=== PATIENT | female | born 1995 | race Caucasian/White ===

== ENCOUNTER 2020-07-25 14:56 | Observation (INO) | payer OTHER, SELFPAY ==
[2020-07-25] VITALS (7 sets, daily range): BP systolic 119–139; BP diastolic 74–90; PULSE 86–109; RESP 16–20; TEMP 36.6–37.3; O2SAT 91–97; BMI 37.2; BMI 37.4
--- NOTE | 2020-07-25 15:15 | EKG12_ITS ---
Test Reason : SOB Blood Pressure : / mmHG Vent. Rate : 102 BPM Atrial Rate : 102 BPM P-R Int : 170 ms QRS Dur : 108 ms QT Int : 346 ms P-R-T Axes : -02 -04 010 degrees QTc Int : 450 ms Sinus tachycardia Otherwise normal ECG Confirmed by АНДРЕЙ CHILDS, SOBEIDA ([id number]), deputy editor in chief LETY CAMPA ([id number]) on 07/27/2020 12:26:37 PM Referred By: JANNA Confirmed By:SOBEIDA CHIANG MD
--- NOTE | 2020-07-25 15:19 | EX.ED.DYSGE1 ---
HPI History of Present Illness Chief Complaint: Shortness of Breath Narrative Narrative: The patient is about 10 weeks seen today by her AFTER SCHOOL COUNSELOR team sent into the emergency department related to constant progressive cough she has had for weeks. She indicates she has acid reflux and she feels as if there is an acid sensation the back of her throat constantly making her cough she generally has a dry cough occasionally productive of some thin mucus. She is had no coronavirus exposures no history of pneumonia [place] PE DVT no cardiopulmonary history is uncomplicated she is G1, P0 bowel bladder habits unremarkable seen today in the AFTER SCHOOL COUNSELOR's office she is been using H2 inhibitors despite that still has a sense of harsh persistent coughing PFSH PFSH Home Medications prenat.vits,roney,[id number] [ Vitamin] 1 tab PO DAILY 07/25/20 [History Last Taken 07/25/20] Allergy/AdvReac Type Severity Reaction Status Date / Time No Known Allergies Allergy Verified 07/25/20 14:57 Surgical History (Updated 07/25/20 @ 15:11 by Adwoa Daly) History of tonsillectomy [place] teeth removed Social History Smoking Status: Never smoker ROS ROS ED ROS Narrative Cough and shortness of breath Constitutional Constitutional ED: Reports subjective, sweats and other; Denies chills, fever(s) or weight loss Eyes Eyes: Denies blurry vision or change in vision ENT ENT ED: Denies ear pain Cardiovascular Cardiovascular: Denies chest pain or palpitations Respiratory/Chest Respiratory/Chest: Denies dyspnea Gastrointestinal Gastrointestinal: Denies abdominal pain, nausea or vomiting Genitourinary Genitourinary ED: Denies dysuria or hematuria Musculoskeletal Musculoskeletal: Denies arthralgias or myalgias Integumentary Reports rash; Denies abscess Neurologic Neurologic: Denies weakness Psychiatric Psychiatric: Denies anxiety or depression Endocrine Endocrinology: Denies polydipsia or polyuria Allergic/Immunologic Allergic/Immunologic ED: Denies urticaria EXAM Physical Exam Narrative Exam Narrative: Dry cough otherwise exams unremarkable lungs sound clear her pulse ox is noted to be about 9394% on room air Const Vital Signs: 07/25/20 14:58 07/25/20 15:13 07/25/20 15:22 Temperature 98.3 F Temperature Source Temporal Pulse Rate 109 H 101 H Respiratory Rate 16 16 Respiratory Effort Normal Respiratory Depth Shallow Respiratory Pattern Normal Blood Pressure 139/74 H Blood Pressure Mean 95 Pulse Ox 91 94 Oxygen Delivery Method Room Air Room Air Room Air Positive well developed General Appearance ED: well developed HEENT Reports normocephalic Negative for trauma Eyes EOMs intact bilaterally Neck supple Chest Wall inspection of chest normal Resp normal respiratory effort Cardio regular rate GI non-tender and non-distended Back/Spine Back/Spine Narrative: unremarkable Extremity normal to inspection Neuro oriented x3 and CN's II-XII intact bilaterally Sensorium / Orientation: alert Psych mental status grossly normal Skin no rashes or lesions noted MDM MDM MDM Narrative Medical decision making narrative: The differential would be extensive she indicates she feels this acid taste in the back of her throat she is on a prep medications at this time ED screen evaluation be obtained symptomatic therapy Patient's 1 view chest x-ray to my review shows appears to be bilateral infiltrates, coronavirus screen rapid antigen positive, other screening labs are generally unremarkable D-dimer is elevated, duplex scans were obtained discussed with the patient discussed the hospitalist at this time given all the above they have agreed to admission hospitalist team will see the patient for further management options and appropriate therapy and they will check the results of the duplex scan Admit stable Final impression COVID-19 pneumonia infection, 10 weeks Lab Data Labs: Laboratory Results - last 24 hr 07/25/20 07/25/20 07/25/20 15:30 15:30 15:30 WBC 6.4 RBC 5.01 Hgb 13.4 Hct 40.7 MCV 81.2 MCH 26.7 L MCHC 32.9 RDW Std Deviation 43.7 RDW Coeff of Laura 14.7 H Plt Count 398 MPV 9.2 Immature Gran % (Auto) 0.500 Neut % (Auto) 77.6 H Lymph % (Auto) 17.0 L [place] % (Auto) 4.7 Eos % (Auto) 0.0 Baso % (Auto) 0.2 Absolute Neuts (auto) 5.0 Absolute Lymphs (auto) 1.09 Nucleated RBC % 0 Differential Comment SCANNED D-Dimer Quant (PE/DVT) 0.82 H* Sodium 134 L Potassium 3.9 Chloride 103 Carbon Dioxide 23.0 Anion Gap 8 BUN 7 Creatinine 0.72 Estim Creat Clear Calc 110.84 Est GFR (MDRD) Af Amer 125 Est GFR (MDRD) Non-Af 103 BUN/Creatinine Ratio 9.7 L Glucose 94 Calcium 8.3 L Total Bilirubin 0.50 AST 52 H ALT 44 Alkaline Phosphatase 101 Troponin I < 0.015 Total Protein 7.4 Albumin 2.8 L Globulin 4.6 H Albumin/Globulin Ratio 0.6 L Radiography Diagnostic Testing: Radiology Impression Chest X-Ray 07/25/20 15:54 IMPRESSION: Diffuse patchy opacifications in both lung huerta without effusions. Follow-up recommended to ensure resolution. Differential as described above Electronically Signed: Delta Haines MD at 16:15 EDT , Service support , Discharge Plan Triage Chief Complaint: Shortness of Breath ED Provider: Heena Morrow Dx/Rx/DC Orders Prescriptions: No Action Vitamin Tablet 1 tab PO DAILY RF: 0 Primary Care Provider: Care Physician,No Primary
--- NOTE | 2020-07-25 15:22 | NURSING ---
NO OLD EKGS
[2020-07-25] MEDS: Mag Hydrox/Al Hydrox/Simeth 30 ML UDC PO (15:36)
--- NOTE | 2020-07-25 15:54 | RAD_ITS ---
STUDY: X-RAY CHEST REASON FOR EXAM: Female, 25 years old. cough. Patient is 10 wks TECHNIQUE: PA and lateral views of the chest. COMPARISON: None. FINDINGS: Lungs are expanded with airspace opacifications in both lung huerta without effusions. Findings could be seen with Covid pneumonia, multifocal pneumonitis or drug interaction/toxicity. Normal size heart. Normal mediastinum and ashwin. Normal visualized pulmonary arteries. Normal visualized aortic arch and descending thoracic aorta. Normal visualized thoracic spine. Normal visualized ribs, clavicles, and shoulders. There is no demonstrated abnormality of the visualized soft tissue structures of the upper abdomen. RAD/Chest PA and Lateral IMPRESSION: Diffuse patchy opacifications in both lung huerta without effusions. Follow-up recommended to ensure resolution. Differential as described above Electronically Signed: Delta Haines MD at 16:15 EDT , Service support ,
[2020-07-25] MEDS: Oxymetazoline 0.05% 1 SPRAY SPRAY.BTL 2 SPRAY NASAL (16:04)
[2020-07-25 16:07] LABS: Absolute Lymphocyte Count 1.09 X10^3/uL (0.83-4.51); Basophil# 0.01 X10^3/uL; Basophil% 0.2 % (0-1); Hematocrit 40.7 % (37-47); Hemoglobin 13.4 g/dL (12.0-15.0); Lymphocyte # 1.09 X10^3/ul (0.83-4.51); Mean Corp Hgb Conc 32.9 g/dL (32-36); Mean Corpuscular Hgb 26.7 pg (27.0-32.0); Mean Corpuscular Volume 81.2 fL (81-99); Mean Platelet Vol. 9.2 fl (6.2-12.0); Monocyte% 4.7 % (0-10); NRBC Flagged by Analyzer 0 % (0-5); Neutrophil # 4.98 X10^3/uL (2.7-7.7); Neutrophil % 77.6 % (47-70); POSITIVE COUNT YES; Platelet Count 398 K/mm3 (150-450); RBC Distribution Width CV 14.7 % (11.6-14.6); RBC Distribution Width SD 43.7 fl (35.1-43.9); Red Blood Count 5.01 M/mm3 (4.2-5.4); White Blood Count 6.4 K/mm3 (4.4-11.0)
[2020-07-25 16:11] LABS: Differential Indicated SCAN CRITERIA MET
[2020-07-25 16:12] LABS: D-Dimer Quantitative (DVT/PE) 0.82 FEU/ug/m (0.27-0.49)
[2020-07-25 16:18] LABS: ALB/GLOB Ratio 0.6 RATIO (0.9-2.4); AST(SGOT) 52 U/L (15-37); Alanine Aminotransfer ALT/SGPT 44 U/L (13-56); Albumin, Serum 2.8 g/dL (3.2-5.0); Alkaline Phosphatase 101 U/L (45-117); Anion Gap 8 (5-15); BUN 7 mg/dL (7-18); BUN/Creat Ratio 9.7 RATIO (10-20); Calcium,Total 8.3 mg/dL (8.5-10.1); Chloride 103 mmol/L (98-107); Creatinine, Serum 0.72 mg/dL (0.55-1.02); EST Glomerular Filtration Rate 103 mL/min (>60); Est Glom Filt Rate - Afr Amer 125 mL/min (>60); Estimated Creatinine Clearance 110.84 ml/min; Globulin 4.6 g/dL (2.2-4.2); Glucose 94 mg/dL (74-106); Potassium 3.9 mmol/L (3.5-5.1); Protein, Total 7.4 g/dL (6.4-8.2); Sodium Level 134 mmol/L (136-145)
--- NOTE | 2020-07-25 16:34 | HP.PCM.HOS_ITS ---
HPI - General General Date of Admission: 07/25/20 Date of Service: 07/25/20 Chief Complaint: Dyspnea, cough, worsened reflux. HPI Narrative The patient is a 25 y/o F w/ PMHx: Obesity, 9-10 week status following w/ YUSRA Rodrigues who presents to the [facility] ED on 07/25/20 with history of ongoing persistent harsh coughing despite usage of an H2 inhibitor with increased reflux with evaluation per her LOAN MANAGER on day of presentation with referral eventually to the ED given ongoing issues with worsening reflux, nausea, emesis without any diarrhea or abdominal discomfort actually admitting to recent constipation as well as dyspnea, generalized pleuritic chest discomfort worse with coughing ongoing x3 days. She notes that her spouse has been well and not ill. She notes not having been Covid vaccinated but had been asking her OB actually at her current visit when she might be able to receive it. Work-up in the ED included T 98.3, heart rate initially 109, BP 139/74, respiratory rate 16, initially 91% on room air with improvement to 94% on room air however this is nonambulatory, CBC with WBC 6.4, hemoglobin 13.4, platelet 398 without any marked shift, D-dimer 0.82, CMP with sodium 134, total bilirubin 0.5, AST/LT 52/44, alk phos 101, troponin less than 0.015, BNP pending upon requested evaluation of patient, chest x-ray with diffuse patchy opacifications in bilateral lung huerta, rapid SARS positive. Discussed case with ED physician and duplex ultrasound given elevated dimer plan to be obtained in the ED. Discussed case upon admission with infectious disease and agreed with administration of both Decadron and remdesivir. 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 [facility] Medical History (Updated 07/25/20 @ 17:[address] Mary Kate Muñoz MD) Obesity (BMI 30-39.9) Home Medications prenat.vits,roney,[id number] [ Vitamin] 1 tab PO DAILY 07/25/20 [History Last Taken 07/25/20] Allergy/AdvReac Type Severity Reaction Status Date / Time No Known Allergies Allergy Verified 07/25/20 14:57 Family History (Updated 07/25/20 @ 17:[address] Mary Kate Muñoz MD) Father Hypertension other (Patient denies marked maternal family history including HD, DM, CA. Mother takes no medications.) Surgical History (Updated 07/25/20 @ 15:11 by Adwoa Daly) History of tonsillectomy [place] teeth removed Social History (Updated 07/25/20 @ 17:[address] Mary Kate Muñoz MD) household members: spouse Smoking Status: Never smoker alcohol intake: former details: Quit during current , prior only occasional EtOH intake. substance use type: does not use ROS ROS Narrative Admission Review of Systems: CONSTITUTIONAL: No weight loss, fever, chills, + weakness or fatigue. HEENT: Eyes: No visual loss, blurred vision, double vision or yellow sclerae. Ears, Nose, Throat: No hearing loss, sneezing, congestion, runny nose or sore throat. SKIN: No rash or itching, lesions, wounds. CARDIOVASCULAR: No chest pain, chest pressure or chest discomfort, palpitations, edema, orthopnea, syncopal events. RESPIRATORY: + shortness of breath, cough without marked sputum, No wheezing, hemoptysis. GASTROINTESTINAL: + anorexia, nausea, vomiting, constipation, No diarrhea, abdominal pain, melena, BRBPR. GENITOURINARY: No dysuria, frequency, urgency or retention. NEUROLOGICAL: No headache, dizziness, syncope, paralysis, ataxia, numbness or tingling in the extremities, focal weakness, change in bowel or bladder control, seizure. MUSCULOSKELETAL: + muscle, back pain, joint pain or stiffness. HEMATOLOGIC: No anemia, bleeding or bruising. LYMPHATICS: No enlarged nodes. No history of splenectomy. PSYCHIATRIC: No history of depression or anxiety. ENDOCRINOLOGIC: No reports of sweating, cold or heat intolerance. No polyuria or polydipsia. ALLERGIES: No history of asthma, hives, eczema or rhinitis. Vital Signs Vital Signs Vital Signs: 07/25/20 14:58 07/25/20 15:13 07/25/20 15:22 Temperature 98.3 F Temperature Source Temporal Pulse Rate 109 H 101 H Respiratory Rate 16 16 Respiratory Effort Normal Respiratory Depth Shallow Respiratory Pattern Normal Blood Pressure 139/74 H Blood Pressure Mean 95 Pulse Ox 91 94 Oxygen Delivery Method Room Air Room Air Room Air Weight Weight: 230 lb 9.656 oz Body Mass Index (BMI) 37.2 Physical Exam Narrative Physical Examination: General: awake, alert, oriented x 3 and cooperative, seated upright in the ED bed in no apparent distress, mildly anxious and fatigued appearing. Skin: normal color, normal turgor, no icterus, no cyanosis. HEENT: AT/NC, EOMI, PERRLA, mildly dry MM, no carotid bruits or JVD noted. Lungs: Diminished breath sounds throughout, moderate effort, coughing elicited with deep inspiratory increased effort, no rales, ronchi or wheezing. Heart: Mildly tachycardic with regular rhythm; no gallop, rub audible. Abdomen: soft, obese, NTTP, ND, distant normal BS, no obvious HSM. Extremities: no cyanosis, clubbing, or edema. Neurological: patient awake, alert, oriented as noted, cognitive function intact; pupils equally reactive to light and accommodation, cranial nerves II- XII grossly normal, moving all 4 extremities, no focal deficits, strength mildly to moderately global decrease given acute presentation. Psychiatric: affect appears fatigued, mildly anxious, no acute evidence of depressive feelings. Lab / Micro Data Result Diagrams: 07/25/20 15:30 07/25/20 15:30 Labs: Laboratory Results - last 24 hr 07/25/20 07/25/20 07/25/20 15:30 15:30 15:30 WBC 6.4 RBC 5.01 Hgb 13.4 Hct 40.7 MCV 81.2 MCH 26.7 L MCHC 32.9 RDW Std Deviation 43.7 RDW Coeff of Laura 14.7 H Plt Count 398 MPV 9.2 Immature Gran % (Auto) 0.500 Neut % (Auto) 77.6 H Lymph % (Auto) 17.0 L [place] % (Auto) 4.7 Eos % (Auto) 0.0 Baso % (Auto) 0.2 Absolute Neuts (auto) 5.0 Absolute Lymphs (auto) 1.09 Nucleated RBC % 0 D-Dimer Quant (PE/DVT) 0.82 H* Sodium 134 L Potassium 3.9 Chloride 103 Carbon Dioxide 23.0 Anion Gap 8 BUN 7 Creatinine 0.72 Estim Creat Clear Calc 110.84 Est GFR (MDRD) Af Amer 125 Est GFR (MDRD) Non-Af 103 BUN/Creatinine Ratio 9.7 L Glucose 94 Calcium 8.3 L Total Bilirubin 0.50 AST 52 H ALT 44 Alkaline Phosphatase 101 Troponin I < 0.015 Total Protein 7.4 Albumin 2.8 L Globulin 4.6 H Albumin/Globulin Ratio 0.6 L Micro: Microbiology 07/25/20 15:30 SARS-CoV-2 Antigen (Rapid) - Final Nasal Secretion SARS-CoV-2 (COVID 19) Radiology Impression Chest X-Ray 07/25/20 15:54 IMPRESSION: Diffuse patchy opacifications in both lung huerta without effusions. Follow-up recommended to ensure resolution. Differential as described above Electronically Signed: Delta Haines MD at 16:15 EDT , Service support , Assessment & Plan Assessment/Plan (1) Pneumonia due to COVID-19 virus: (2) Hypoxia: PLAN: The patient is a 25 y/o F w/ PMHx: Obesity, 9-10 week status following w/ Rodrigues, GERD who presents to the [facility] ED on 07/25/20 with history of ongoing persistent harsh coughing despite usage of an H2 inhibitor with increased reflux with evaluation per her LOAN MANAGER on day of presentation with referral eventually to the ED given ongoing issues with worsening reflux, nausea, emesis without any diarrhea or abdominal discomfort actually admitting to recent constipation as well as dyspnea, generalized pleuritic chest discomfort worse with coughing ongoing x3 days. S 1. Acute Hypoxia, Dyspnea, Cough with Bilateral Pneumonia secondary to Acute Viral Syndrome, COVID-19: Will admit to the COVID unit, will maintain on oxygen with wean as tolerated to room air, PRN albuterol, HOB, IS parameters w/ pending sputum cultures, respiratory viral panel and urine antigens, D-dimer elevated but + status thus will obtain BL LE duplex US to be cautious, procalcitonin, CRP, CPK, Ferritin, LDH, trop and BNP, continue supportive care including q 2 hour turning including prone given no prone bed availability and judicious hydration, closely monitor for worsening status for ARDS and multiorgan failure, will consult Infectious disease, will initiate and continue IV decadron x 10 doses, given presentation will also initiate IV remdesivir but defer to discretion of Infectious disease especially given status however current data supportive of administration with same dose as non- patients. Patient reports O+ blood type. 2. Elevated D-dimer: Patient with elevated dimer as noted per ED, pending bilateral lower extremity duplex ultrasound given positive status with attempted for CTPA, elevated risk for clots in let alone with positive Covid status which was discussed with patient. 3. Elevated LFT: Admission total bilirubin 0.50, AST/LT 52/44, alk phos 101, likely secondary to #1, will trend CMP as noted. 4. , 9 to 10 weeks status: Discussed case and presentation with patient LOAN MANAGER on-call physician who confirmed status, will attempt to maintain every shift heart tones although patient does note difficulties and noted that it required in office transvaginal. We will continue vitamin. 5. Obesity: Weight loss and lifestyle changes encouraged. 6. GERD: We will maintain on famotidine. 7. DVT prophylaxis: SCDs, Lovenox. Visit Charges OBSV E&M: 87114 Initial observation care L3
[2020-07-25 16:38] LABS: Differential Comment SCANNED
[2020-07-25 16:47] LABS: BNP,B-Type NATRIURETIC PEPTIDE < 2.0 pg/mL (0-100)
--- NOTE | 2020-07-25 16:50 | US_ITS ---
STUDY: VENOUS DOPPLER ULTRASOUND - BILATERAL LOWER EXTREMITIES REASON FOR EXAM: Female, 25 years old. Evaluation for thrombosis -- ELEVATED D-DIMER TECHNIQUE: Ultrasound evaluation of the deep vein system to include bowden-scale imaging and compression was performed. Bowden-scale imaging and Doppler sonographic evaluation, including duplex spectral analysis and qualitative color flow sonography, was performed. COMPARISON: None. FINDINGS: RIGHT LEG Common Femoral Vein: Normal compression, spontaneity and augmentation. Normal color Doppler. Common Femoral Vein/Greater Saphenous Junction: Normal compression, spontaneity and augmentation. Normal color Doppler. Deep Femoral Vein: Normal compression, spontaneity and augmentation. Normal color Doppler. Femoral Proximal: Normal compression, spontaneity and augmentation. Normal color Doppler. Femoral Middle: Normal compression, spontaneity and augmentation. Normal color Doppler. Femoral Distal: Normal compression, spontaneity and augmentation. Normal color Doppler. Popliteal Vein: Normal compression, spontaneity and augmentation. Normal color Doppler. Posterior Tibial Vein: Normal compression, spontaneity and augmentation. Normal color Doppler. Peroneal Vein: Normal compression, spontaneity and augmentation. Normal color Doppler. LEFT LEG Common Femoral Vein: Normal compression, spontaneity and augmentation. Normal color Doppler. Common Femoral Vein/Greater Saphenous Junction: Normal compression, spontaneity and augmentation. Normal color Doppler. Deep Femoral Vein: Normal compression, spontaneity and augmentation. Normal color Doppler. Femoral Proximal: Normal compression, spontaneity and augmentation. Normal color Doppler. Femoral Middle: Normal compression, spontaneity and augmentation. Normal color Doppler. Femoral Distal: Normal compression, spontaneity and augmentation. Normal color Doppler. Popliteal Vein: Normal compression, spontaneity and augmentation. Normal color Doppler. Posterior Tibial Vein: Normal compression, spontaneity and augmentation. Normal color Doppler. Peroneal Vein: Normal compression, spontaneity and augmentation. Normal color Doppler. US/Venous Duplex Imag/[place] Extrem IMPRESSION: Normal venous Doppler ultrasound of the bilateral lower extremities. Electronically Signed: Tang Harden MD at 18:23 EDT Tel , Service support ,
--- NOTE | 2020-07-25 17:27 | NURSING ---
MED SURG WHITE OBS COVID PNEUMONIA, HYPOXIA
--- NOTE | 2020-07-25 17:44 | NURSING ---
CV ICU 203
[2020-07-25 17:59] LABS: Ferritin 153 ng/mL (8-252); Magnesium 2.2 mg/dL (1.6-2.6)
--- NOTE | 2020-07-25 20:08 | ED.RN ---
Called to give report and was told that nurse is in with a patient and shewill call back for report
--- NOTE | 2020-07-25 20:33 | ED.RN ---
Report called to ICU nurse
[2020-07-25] MEDS: Enoxaparin 40 MG/0.4 ML Syringe SC (21:28)
[2020-07-25] MEDS: 0.9% Normal Saline 1,000 ML 100 ML IV (21:28)
[2020-07-25] MEDS: dexAMETHasone 10 MG/ML Vial 6 MG IV (21:28)
[2020-07-25] MEDS: Famotidine 20 MG Tablet PO (21:29)
[2020-07-26] VITALS: PULSE 86
[2020-07-26 02:00] VITALS: BP 116/58; PULSE 86; RESP 21; TEMP 37.3; O2SAT 95
[2020-07-26 04:00] VITALS: PULSE 79
[2020-07-26 05:31] LABS: Absolute Lymphocyte Count 1.07 X10^3/uL (0.83-4.51); Absolute Neutrophil Count 2.9 X10^3/uL (2.0-7.7); Basophil# 0.01 X10^3/uL; Basophil% 0.2 % (0-1); Hematocrit 39.1 % (37-47); Hemoglobin 12.4 g/dL (12.0-15.0); Lymphocyte # 1.07 X10^3/ul (0.83-4.51); Lymphocyte % 25.7 % (19-41); Mean Corp Hgb Conc 31.7 g/dL (32-36); Mean Corpuscular Hgb 26.1 pg (27.0-32.0); Mean Corpuscular Volume 82.3 fL (81-99); Mean Platelet Vol. 8.7 fl (6.2-12.0); Monocyte# 0.21 X10^3/uL; NRBC Flagged by Analyzer 0 % (0-5); Neutrophil # 2.86 X10^3/uL (2.7-7.7); Neutrophil % 68.6 % (47-70); POSITIVE MORPHOLOGY YES; Platelet Count 371 K/mm3 (150-450); RBC Distribution Width CV 14.6 % (11.6-14.6); RBC Distribution Width SD 43.9 fl (35.1-43.9); Red Blood Count 4.75 M/mm3 (4.2-5.4); White Blood Count 4.2 K/mm3 (4.4-11.0)
[2020-07-26 05:44] LABS: Differential Indicated SCAN CRITERIA MET
[2020-07-26 05:49] LABS: ALB/GLOB Ratio 0.6 RATIO (0.9-2.4); AST(SGOT) 44 U/L (15-37); Alanine Aminotransfer ALT/SGPT 48 U/L (13-56); Albumin, Serum 2.6 g/dL (3.2-5.0); Alkaline Phosphatase 108 U/L (45-117); Anion Gap 7 (5-15); BUN 7 mg/dL (7-18); BUN/Creat Ratio 11.8 RATIO (10-20); Calcium,Total 8.2 mg/dL (8.5-10.1); Chloride 107 mmol/L (98-107); EST Glomerular Filtration Rate 129 mL/min (>60); Est Glom Filt Rate - Afr Amer 156 mL/min (>60); Estimated Creatinine Clearance 133.01 ml/min; Globulin 4.3 g/dL (2.2-4.2); Glucose 114 mg/dL (74-106); Potassium 4.3 mmol/L (3.5-5.1); Protein, Total 6.9 g/dL (6.4-8.2); Sodium Level 139 mmol/L (136-145)
[2020-07-26 06:03] LABS: Procalcitonin 0.08 ng/mL (0.00-0.09)
--- NOTE | 2020-07-26 07:08 | PN.HOSP_ITS ---
Subjective Subjective Patient admitted with COVID-19 infection. Temperature 99.2 ?F. Pulse ox 95% on room air. Objective Data Objective Data Vital Signs: Vital Signs Temp Pulse Resp BP Pulse Ox 99.2 F H 79 21 H 116/58 L 95 07/26/20 02:00 07/26/20 04:00 07/26/20 02:00 07/26/20 02:00 07/26/20 02:00 Oxygen Flow Rate (L/min) 2 Oxygen Delivery Method Room Air Weight: 232 lb Body Mass Index (BMI) 37.4 Intake & Output: Intake and Output for Last 24 Hours 07/24/20 07/25/20 07/26/20 23:59 23:59 23:59 Intake Total 220 / 220 Balance 220 / 220 Lab / Micro Data Result Diagrams: 07/26/20 05:20 07/26/20 05:20 Labs: Laboratory Results - last 24 hr 07/25/20 07/25/20 07/25/20 15:30 15:30 15:30 WBC 6.4 RBC 5.01 Hgb 13.4 Hct 40.7 MCV 81.2 MCH 26.7 L MCHC 32.9 RDW Std Deviation 43.7 RDW Coeff of Laura 14.7 H Plt Count 398 MPV 9.2 Immature Gran % (Auto) 0.500 Neut % (Auto) 77.6 H Lymph % (Auto) 17.0 L [place] % (Auto) 4.7 Eos % (Auto) 0.0 Baso % (Auto) 0.2 Absolute Neuts (auto) 5.0 Absolute Lymphs (auto) 1.09 Nucleated RBC % 0 Differential Comment SCANNED D-Dimer Quant (PE/DVT) 0.82 H* Sodium 134 L Potassium 3.9 Chloride 103 Carbon Dioxide 23.0 Anion Gap 8 BUN 7 Creatinine 0.72 Estim Creat Clear Calc 110.84 Est GFR (MDRD) Af Amer 125 Est GFR (MDRD) Non-Af 103 BUN/Creatinine Ratio 9.7 L Glucose 94 Calcium 8.3 L Magnesium Ferritin Total Bilirubin 0.50 AST 52 H ALT 44 Alkaline Phosphatase 101 Troponin I < 0.015 C-React Prot Ext Range B-Natriuretic Peptide Total Protein 7.4 Albumin 2.8 L Globulin 4.6 H Albumin/Globulin Ratio 0.6 L Procalcitonin 07/25/20 07/25/20 07/26/20 15:30 15:30 05:20 WBC RBC Hgb Hct MCV MCH MCHC RDW Std Deviation RDW Coeff of Laura Plt Count MPV Immature Gran % (Auto) Neut % (Auto) Lymph % (Auto) [place] % (Auto) Eos % (Auto) Baso % (Auto) Absolute Neuts (auto) Absolute Lymphs (auto) Nucleated RBC % Differential Comment D-Dimer Quant (PE/DVT) Sodium Potassium Chloride Carbon Dioxide Anion Gap BUN Creatinine Estim Creat Clear Calc Est GFR (MDRD) Af Amer Est GFR (MDRD) Non-Af BUN/Creatinine Ratio Glucose Calcium Magnesium 2.2 Ferritin 153 Total Bilirubin AST ALT Alkaline Phosphatase Troponin I C-React Prot Ext Range 80.70 H B-Natriuretic Peptide < 2.0 Total Protein Albumin Globulin Albumin/Globulin Ratio Procalcitonin 0.08 07/26/20 07/26/20 05:20 05:20 WBC 4.2 L RBC 4.75 Hgb 12.4 Hct 39.1 MCV 82.3 MCH 26.1 L MCHC 31.7 L RDW Std Deviation 43.9 RDW Coeff of Laura 14.6 Plt Count 371 MPV 8.7 Immature Gran % (Auto) 0.500 Neut % (Auto) 68.6 Lymph % (Auto) 25.7 [place] % (Auto) 5.0 Eos % (Auto) 0.0 Baso % (Auto) 0.2 Absolute Neuts (auto) 2.9 Absolute Lymphs (auto) 1.07 Nucleated RBC % 0 Differential Comment D-Dimer Quant (PE/DVT) Sodium 139 Potassium 4.3 Chloride 107 Carbon Dioxide 25.0 Anion Gap 7 BUN 7 Creatinine 0.60 Estim Creat Clear Calc 133.01 Est GFR (MDRD) Af Amer 156 Est GFR (MDRD) Non-Af 129 BUN/Creatinine Ratio 11.8 Glucose 114 H Calcium 8.2 L Magnesium Ferritin Total Bilirubin 0.30 AST 44 H ALT 48 Alkaline Phosphatase 108 Troponin I C-React Prot Ext Range B-Natriuretic Peptide Total Protein 6.9 Albumin 2.6 L Globulin 4.3 H Albumin/Globulin Ratio 0.6 L Procalcitonin Micro: Microbiology 07/26/20 01:20 Urine, Clean Catch Legionella Antigen - Final 07/26/20 01:20 Urine, Clean Catch Streptococcus pneumoniae Antigen (M - Final 07/25/20 17:50 Mucosa - Nose Respiratory Panel (PCR) - Final 07/25/20 15:30 Nasal Secretion SARS-CoV-2 Antigen (Rapid) - Final SARS-CoV-2 (COVID 19) Radiography Diagnostic Testing: Radiology Impression Chest X-Ray 07/25/20 15:54 IMPRESSION: Diffuse patchy opacifications in both lung huerta without effusions. Follow-up recommended to ensure resolution. Differential as described above Electronically Signed: Delta Haines MD at 16:15 EDT , Service support , Venous Duplex 07/25/20 16:50 IMPRESSION: Normal venous Doppler ultrasound of the bilateral lower extremities. Electronically Signed: Tang Harden MD at 18:23 EDT Tel , Service support , Assessment & Plan Assessment/Plan (1) Pneumonia due to COVID-19 virus: (2) Hypoxia: PLAN: The patient is a 25 y/o F, 9 to 10-week is admitted in Covid floor for cough, not getting better on outpatient medications, reflux, nausea vomiting when done, shortness of breath and pleuritic chest discomfort worse with coughing for 3 days. Chest x-ray shows diffuse patchy opacification of both lung huerta without effusion. 1. Acute hypoxia/respiratory insufficiency and bilateral Pneumonia secondary to Acute Viral Syndrome, COVID-19: Patient is admitted to Covid cohort floor. On IV remdesivir and Decadron. Mild leukopenia with relative lymphocytopenia. D- dimer, and CRP elevated. Procalcitonin normal. ID is consulted. Urinary antigens are negative. Respiratory panel negative. Venous duplex of bilateral lower extremities reported normal 2. Elevated D-dimer: As mentioned above. 3. Mildly elevated transaminases probably due to viral infection or : Liver chemistry AST 52, ALT 44. Repeat AST almost normal 44. 4. , 9 to 10 weeks status: On-call OB physician was notified. heart monitoring every shift. Continue vitamin. Patient follows with Dr. Rodrigues. 5. Obesity: Weight loss and lifestyle changes encouraged. 6. GERD: on famotidine. 7. DVT prophylaxis: SCDs, Lovenox. Visit Charges Inpatient E&M: 36794 Subs Hosp L2
[2020-07-26 07:14] VITALS: O2SAT 95
[2020-07-26 07:58] VITALS: BP 109/73; PULSE 74; RESP 16; TEMP 36.8; O2SAT 91
[2020-07-26 08:00] VITALS: PULSE 70
[2020-07-26] MEDS: dexAMETHasone 10 MG/ML Vial 6 MG IV (08:05)
[2020-07-26] MEDS: Prenatal Vits Tablet 1 TABLET PO (08:06)
[2020-07-26] MEDS: 0.9% Normal Saline 1,000 ML 100 ML IV (08:06)
[2020-07-26] MEDS: Enoxaparin 40 MG/0.4 ML Syringe SC (08:06)
[2020-07-26] MEDS: Famotidine 20 MG Tablet PO (08:06)
[2020-07-26] MEDS: Magnesium Hydroxide 30 ML UDC PO (09:21)
--- NOTE | 2020-07-26 09:52 | CASEMGMT ---
ANTONINO ARIAS Assessment: TC to pt room for initial transition planning/care coordination assessment. RN JUANA introduced self and role at [facility], pt voices understanding and consents to assessment. Pt is A/O x4 and answers all questions appropriately at this time. Care providers, pharmacy, and demographics verified/updated. Admitting Dx: COVID PNA, hypoxia PCP: No PCP. Provided nurse with pamphlet of local physicians to give to pt. Specialists: , [employer] Preferred Pharmacy: [facility] [place] Insurance: [employer] Prescription Benefit: yes LW/HPOA: Pt denies having a LW/DPOA. LNOK: Dale and Nasima Taylor, parents; Demetrio Luis, Living Arrangements: Pt lives with in a split level house with no steps to enter. Pt is I in ADL's and denies concerns at home. Transportation: Pt drives self and denies concerns with transportation. DME: Pt denies any DME in the home. Pt states no concerns with going home at time of dc. Pt is 9-10 weeks . Pt states no further concerns/needs. CM to follow for O2 needs. Provided pt list of local in network DME companies should pt need O2 at dc. Pt preferred provider is [facility]. Advised pt to ask CM if any further question/concerns/needs arise, voices understanding. Pt Goal: Home Plan: Home
[2020-07-26] MEDS: guaiFENesin/D-Methorphan TAB.SR.12H 1 TABLET PO (10:26)
--- NOTE | 2020-07-26 11:21 | NURSING ---
1110-unable to determine fhr with external doppler at this time.
--- NOTE | 2020-07-26 13:25 | PCM.DC ---
Discharge Instructions Diet Discharge Diet: No restrictions Activity Discharge Activity: Return to Normal Activity and May Not Drive Weight Bearing Status: Partial weight bearing Dressing / Incision Call your doctor if you observe: Fever of 101 or Higher, Coldness, Increased Pain, Numbness or Tingling, Change in Color, Inability to urinate, Inability to have a bowel movement, Shortness of breath, Dizziness, Swelling in the ankles, Chest pain, Prolonged hiccupping, Increased palpitations (irregular heartbeat), Calf discomfort and Uncontrolled pain Follow Up Care Test Results: Test results from this visit will be discussed in further detail at your follow-up appointment, if applicable. Discharge Plan Admission Admit Date/Time: 07/25/20 16:41 Primary Reason for Your Visit: Bilateral Covid pneumonia Attending Provider: Virgilio Brito Primary Care Provider: Care Physician,No Primary Consulting Providers: Eddie Chairez Instructions Patient Instructions: Coronavirus Disease 2019 COVID-19 and Childbirth Discharge Orders/Prescriptions Prescriptions: New sennosides-docusate sodium [Stool Softener-Stimulant Laxat] 8.6-50 mg Tablet 2 tab PO BID PRN PRN (Reason: Constipation) Qty: 0 RF: 0 dexamethasone [Decadron] 6 mg tablet 6 mg PO DAILY Qty: 8 RF: 0 dextromethorphan-guaifenesin [Mucus DM Max ER] 60-1,200 mg tablet extended release 12 hr 1 tab PO Q12H Qty: 14 RF: 0 Continued prenat.vits,roney,kda-vqir-dsldt Tablet 1 tab PO DAILY RF: 0 Referrals / Follow Up: Care Physician,No Primary [Primary Care Provider] - Disposition Disposition (needs filled in before D/C Order can be placed): Home, self care
--- NOTE | 2020-07-26 13:30 | DS.PCM_ITS ---
Providers Date of Admission: 07/25/20 Primary Care Physician: Dionne Primary Care Phys Consultations 07/25/20 20:59 Consult: Infectious Disease Routine Consulting Provider: Eddie Chairez Reason for Consult: COVID PNA, hypoxia, 10 weeks EMERGENT Consult: No MD Notified: Yes Date Notified:: 07/25/20 Time Notified: 16:38 Method of Notification: called. Reason For Visit: COVID PNA, HYPOXIA Diagnosis Discharge Diagnosis (1) Pneumonia due to COVID-19 virus: Status: Acute Code(s): U07.1 - COVID-19; J12.82 - Pneumonia due to coronavirus disease 2019 (2) Hypoxia: Status: Acute Code(s): R09.02 - Hypoxemia Medications at Discharge Home Medications prenat.vits,roney,hti-sodx-nomns 1 tab PO DAILY 07/25/20 dexamethasone [Decadron] 6 mg PO DAILY #8 tab 07/26/20 dextromethorphan-guaifenesin [Mucus DM Max ER] 1 tab PO Q12H #14 tab 07/26/20 enoxaparin 40 mg SUBCUT DAILY 14 Days #5.6 ml 07/26/20 sennosides-docusate sodium [Stool Softener-Stimulant Laxat] 2 tab PO BID PRN PRN #0 tab 07/26/20 Hospital Course Summary of Care Provided Hospital Course: The patient is a 25 y/o F, 9 to 10-week is admitted in Covid floor for cough, not getting better on outpatient medications, reflux, nausea vomiting when done, shortness of breath and pleuritic chest discomfort worse with coughing for 3 days. Chest x-ray shows diffuse patchy opacification of both lung huerta without effusion. 1. Acute hypoxia/respiratory insufficiency and bilateral Pneumonia secondary to Acute Viral Syndrome, COVID-19: Patient is admitted to Covid cohort floor. On IV remdesivir and Decadron. Initial/normal WBC count with relative lymphocytopenia. D-dimer, and CRP elevated. Procalcitonin normal. Repeat labs shows 4.2 thousand WBC count, normal neutrophil and lymphocyte count. Patient wants to go home. ID was consulted but not seen. Urinary antigens are negative. Respiratory panel negative. Venous duplex of bilateral lower extremities reported normal. Patient is discharged on dexamet hasone to complete a total of 10 days, Mucinex D and Lovenox 40 mg subcu daily for total of 2 weeks. 2. Elevated D-dimer: As mentioned above. 3. Mildly elevated transaminases probably due to viral infection or : Liver chemistry AST 52, ALT 44. Repeat AST almost normal 44. 4. , 9 to 10 weeks status: Per abdomen, gravid uterus not palpable probably pelvic about 9 to 10 weeks. On-call OB physician was notified. heart monitoring every shift. Continue vitamin. Patient follows with Dr. Ameena Marin 5. Obesity: Weight loss and lifestyle changes encouraged. 6. GERD: on famotidine. 7. DVT prophylaxis: SCDs, Lovenox. Discharge medication reconciliation done. Discharge follow-up instructions completed. Discharge process discussed with the patient and all questions were answered to patient's satisfaction. Total time spent, exact 35 minutes on discharge meds reconciliation, examination, coordination of care with nurses and ancillary staff, review of imaging and blood test and discussion with the patient on follow-up instructions Physical Exam Narrative Patient was admitted with COVID-19 pneumonia. Temperature 99.2. Last temperature 98.2 ?F. Patient is not short of breath or chest pain. Pulse ox 95% on room air General: Alert, Oriented x3, Cooperative HEENT: Atraumatic, PERRLA, EOMI, Normocephalic Oral: No Gingival or Mucosal Lesions/ Ulcerations Neck: Supple, No JVD, Negative Carotid Bruits Lungs: Air entry diminished in bilateral lung bases. Mild bilateral expiratory wheezing. Cardiovascular: Regular rate, Regular Rhythm, Normal S1, Normal S2, No murmurs Abdomen: Bowel Sounds Present, Soft, Non Tender, Non-Distended : No renal angle tenderness. No suprapubic tenderness. Extremities: No edema, Capillary Refill Less than 3 Seconds Skin: No rashes, No breakdown Musculoskeletal: No Tenderness to Palpation of Joints or Extremities Neurological: Cranial nerves II-XII grossly intact, Deep Tendon Reflexes 2+/4 and Symmetrical, Neuro grossly intact Psych/Mental Status: Normal Affect, Appropriate. ABG / Lab / Microbiology Data Result Diagrams: 07/26/20 05:20 07/26/20 05:20 Laboratory: Laboratory Results - last 24 hr 07/25/20 07/25/20 07/25/20 15:30 15:30 15:30 WBC 6.4 RBC 5.01 Hgb 13.4 Hct 40.7 MCV 81.2 MCH 26.7 L MCHC 32.9 RDW Std Deviation 43.7 RDW Coeff of Laura 14.7 H Plt Count 398 MPV 9.2 Immature Gran % (Auto) 0.500 Neut % (Auto) 77.6 H Lymph % (Auto) 17.0 L [place] % (Auto) 4.7 Eos % (Auto) 0.0 Baso % (Auto) 0.2 Absolute Neuts (auto) 5.0 Absolute Lymphs (auto) 1.09 Nucleated RBC % 0 Differential Comment SCANNED D-Dimer Quant (PE/DVT) 0.82 H* Sodium 134 L Potassium 3.9 Chloride 103 Carbon Dioxide 23.0 Anion Gap 8 BUN 7 Creatinine 0.72 Estim Creat Clear Calc 110.84 Est GFR (MDRD) Af Amer 125 Est GFR (MDRD) Non-Af 103 BUN/Creatinine Ratio 9.7 L Glucose 94 Calcium 8.3 L Magnesium Ferritin Total Bilirubin 0.50 AST 52 H ALT 44 Alkaline Phosphatase 101 Troponin I < 0.015 C-React Prot Ext Range B-Natriuretic Peptide Total Protein 7.4 Albumin 2.8 L Globulin 4.6 H Albumin/Globulin Ratio 0.6 L Procalcitonin 07/25/20 07/25/20 07/26/20 15:30 15:30 05:20 WBC RBC Hgb Hct MCV MCH MCHC RDW Std Deviation RDW Coeff of Laura Plt Count MPV Immature Gran % (Auto) Neut % (Auto) Lymph % (Auto) [place] % (Auto) Eos % (Auto) Baso % (Auto) Absolute Neuts (auto) Absolute Lymphs (auto) Nucleated RBC % Differential Comment D-Dimer Quant (PE/DVT) Sodium Potassium Chloride Carbon Dioxide Anion Gap BUN Creatinine Estim Creat Clear Calc Est GFR (MDRD) Af Amer Est GFR (MDRD) Non-Af BUN/Creatinine Ratio Glucose Calcium Magnesium 2.2 Ferritin 153 Total Bilirubin AST ALT Alkaline Phosphatase Troponin I C-React Prot Ext Range 80.70 H B-Natriuretic Peptide < 2.0 Total Protein Albumin Globulin Albumin/Globulin Ratio Procalcitonin 0.08 07/26/20 07/26/20 05:20 05:20 WBC 4.2 L RBC 4.75 Hgb 12.4 Hct 39.1 MCV 82.3 MCH 26.1 L MCHC 31.7 L RDW Std Deviation 43.9 RDW Coeff of Laura 14.6 Plt Count 371 MPV 8.7 Immature Gran % (Auto) 0.500 Neut % (Auto) 68.6 Lymph % (Auto) 25.7 [place] % (Auto) 5.0 Eos % (Auto) 0.0 Baso % (Auto) 0.2 Absolute Neuts (auto) 2.9 Absolute Lymphs (auto) 1.07 Nucleated RBC % 0 Differential Comment D-Dimer Quant (PE/DVT) Sodium 139 Potassium 4.3 Chloride 107 Carbon Dioxide 25.0 Anion Gap 7 BUN 7 Creatinine 0.60 Estim Creat Clear Calc 133.01 Est GFR (MDRD) Af Amer 156 Est GFR (MDRD) Non-Af 129 BUN/Creatinine Ratio 11.8 Glucose 114 H Calcium 8.2 L Magnesium Ferritin Total Bilirubin 0.30 AST 44 H ALT 48 Alkaline Phosphatase 108 Troponin I C-React Prot Ext Range B-Natriuretic Peptide Total Protein 6.9 Albumin 2.6 L Globulin 4.3 H Albumin/Globulin Ratio 0.6 L Procalcitonin Microbiology: Microbiology 07/26/20 01:20 Legionella Antigen - Final Urine, Clean Catch Streptococcus pneumoniae Antigen (M - Final 07/25/20 17:50 Respiratory Panel (PCR) - Final Mucosa - Nose 07/25/20 15:30 SARS-CoV-2 Antigen (Rapid) - Final Nasal Secretion SARS-CoV-2 (COVID 19) Microbiology 07/26/20 01:20 Urine, Clean Catch Legionella Antigen - Final 07/26/20 01:20 Urine, Clean Catch Streptococcus pneumoniae Antigen (M - Final 07/25/20 17:50 Mucosa - Nose Respiratory Panel (PCR) - Final 07/25/20 15:30 Nasal Secretion SARS-CoV-2 Antigen (Rapid) - Final SARS-CoV-2 (COVID 19) Radiography Diagnostic Testing: Radiology Impression Chest X-Ray 07/25/20 15:54 IMPRESSION: Diffuse patchy opacifications in both lung huerta without effusions. Follow-up recommended to ensure resolution. Differential as described above Electronically Signed: Delta Haines MD at 16:15 EDT , Service support , Venous Duplex 07/25/20 16:50 IMPRESSION: Normal venous Doppler ultrasound of the bilateral lower extremities. Electronically Signed: Tang Harden MD at 18:23 EDT Tel , Service support , D/C Instructions Discharge Diet: No restrictions Discharge Activity: Return to Normal Activity and May Not Drive Weight Bearing Status: Partial weight bearing Call your doctor if you observe: Fever of 101 or Higher, Coldness, Increased Pain, Numbness or Tingling, Change in Color, Inability to urinate, Inability to have a bowel movement, Shortness of breath, Dizziness, Swelling in the ankles, Chest pain, Prolonged hiccupping, Increased palpitations (irregular heartbeat), Calf discomfort and Uncontrolled pain Meaningful Use Info Meaningful Use Diagnoses (Choose all that apply): None applicable Discharge Plan Admission Admit Date/Time: 07/25/20 16:41 Primary Reason for Your Visit: Bilateral Covid pneumonia Attending Provider: Virgilio Brito Primary Care Provider: Care Physician,No Primary Consulting Providers: Eddie Chairez Instructions Patient Instructions: Coronavirus Disease 2019 COVID-19 and Childbirth Discharge Orders/Prescriptions Prescriptions: New sennosides-docusate sodium [Stool Softener-Stimulant Laxat] 8.6-50 mg Tablet 2 tab PO BID PRN PRN (Reason: Constipation) Qty: 0 RF: 0 dexamethasone [Decadron] 6 mg tablet 6 mg PO DAILY Qty: 8 RF: 0 dextromethorphan-guaifenesin [Mucus DM Max ER] 60-1,200 mg tablet extended release 12 hr 1 tab PO Q12H Qty: 14 RF: 0 enoxaparin 40 mg/0.4 mL syringe 40 mg subcut DAILY 14 Days Qty: 5.6 RF: 0 Continued prenat.vits,roney,yie-gsqy-yqome Tablet 1 tab PO DAILY RF: 0 Referrals / Follow Up: Care Physician,No Primary [Primary Care Provider] - Disposition Disposition (needs filled in before D/C Order can be placed): Home, self care Visit Charges OBSV E&M: 16180 Observation care discharge
--- NOTE | 2020-07-27 11:07 | CASEMGMT ---
Addendum entered by Honey Forman 07/27/20 15:23: TC to pt again at this time. Left message on voicemail. TC to Dr. Rodrigues's nurse to see when pt next appt is and to make aware of lovenox situation. Spoke with Sylwia nurse who states pt has a virtual appt next Friday. She also states pt called in yesterday regarding the lovenox and pt picked up a lovenox education box from their office. Original Note: COVID 19 Follow up Telephone Call Pt admitted in observation status 6.1.21-6.2.21 with COVID 19. Pt 9-10 wks . Pt was not sent home on home O2. Pt was prescribed lovenox after the discharge. RN CM calling to follow up. Left message on pt identified voicemail requesting telephone call back to this RN CM.
== END 2020-07-26 11:40 | disposition home or self-care (01) ==
LOC: ED 16:20 → ICU 17:48
PROVIDERS: Admitting Provider Family Medicine; Emergency Provider Emergency Medicine; Visit Provider Internal Medicine
DX: O98.511 Other viral diseases complicating pregnancy, first trimester (principal); O99.511 Diseases of the respiratory system complicating pregnancy, first trimester; U07.1 COVID-19; J12.82 Pneumonia due to coronavirus disease 2019; R09.02 Hypoxemia; O99.611 Diseases of the digestive system complicating pregnancy, first trimester; K21.9 Gastro-esophageal reflux disease without esophagitis; Z3A.10 10 weeks gestation of pregnancy; O99.211 Obesity complicating pregnancy, first trimester; E66.9 Obesity, unspecified
CPT/HCPCS: 71046; 80053; 82728; 83735; 83880; 84145; 84484; 85025; 85379; 86140; 87426; 87449; 87633; 93005; 93970; 96361; 96372; 96374; 96376; 99218; 99251; 99283; J7030; G0378; G0463

== ENCOUNTER 2021-02-07 17:30 | Outpatient (CLI) | payer OTHER, SELFPAY ==
[2021-02-07 17:40] VITALS: BMI 42.3
[2021-02-07 18:00] VITALS: TEMP 36.4
[2021-02-07 18:01] VITALS: BP 149/77; PULSE 88
[2021-02-07 18:10] VITALS: BP 139/74; PULSE 89
--- NOTE | 2021-02-08 08:08 | OB.TRI.HP_ITS ---
HPI - General HPI Narrative JANELL DOTSON, is a 25 F @ 37.2 weeks here for NST due to obesity. PFSH PFSH Medical History (Updated 02/08/21 @ 08:[address] Jolynn Woody MD) Obesity (BMI 30-39.9) Home Medications prenat.vits,roney,oim-hliy-betne 1 tab PO DAILY 07/25/20 [History Last Taken 07/25/20] Allergy/AdvReac Type Severity Reaction Status Date / Time No Known Allergies Allergy Verified 02/07/21 17:45 Family History (Updated 07/25/20 @ 17:[address] Mary Kate Muñoz MD) Father Hypertension Surgical History (Updated 07/25/20 @ 15:11 by Adwoa Daly) History of tonsillectomy [place] teeth removed Social History (Updated 07/25/20 @ 17:[address] Mary Kate Muñoz MD) household members: spouse Smoking Status: Never smoker alcohol intake: former details: Quit during current , prior only occasional EtOH intake. substance use type: does not use NST FHR Rate Baby A Baseline: 130 Variability:: Moderate Accelerations:: 15 x 15 Decelerations:: None NST Reactive:: Yes FHR Category:: Category I Uterine Activity:: irregular Assessment & Plan (1) 37 weeks gestation of : (2) Obesity affecting : QUALIFIERS: Trimester: third trimester Qualified Code(s): O99.213 - Obesity complicating , third trimester PLAN: @ 37.2 weeks- Obesity in here for NST 1) NST reactive Cat 1- well being established 2) dc home
== END 2021-02-07 18:15 | disposition home or self-care (01) ==
LOC: WPOUT 17:39 → WP 17:39
PROVIDERS: Visit Provider Obstetrics & Gynecology
DX: O99.213 Obesity complicating pregnancy, third trimester (principal); E66.9 Obesity, unspecified; Z3A.37 37 weeks gestation of pregnancy
CPT/HCPCS: 59025

== ENCOUNTER 2021-02-19 09:16 | Inpatient (IN) | payer OTHER, SELFPAY ==
--- NOTE | 2021-02-15 10:57 | HP.PCM_ITS ---
History and Physical HPI: The patient is a 25 year old female presenting for pre-operative visit. She is scheduled for , for breech on 02/19. Procedure discussed along with risks, benefits and complications. Other alternatives discussed for management. Consent form signed? Yes. ? ? PAST MEDICAL HISTORY PAST MEDICAL HISTORY Diagnosis Date ? NEGATIVE MEDICAL HISTORY ? ? ? PAST SURGICAL HISTORY PAST SURGICAL HISTORY Procedure Laterality Date ? PAST SURGICAL HISTORY OF ? ? ? wisdom teeth ? TONSILLECTOMY HX ? CURRENT MEDICATIONS Current Outpatient Medications Medication Sig Dispense Refill ? LOW-DOSE ASPIRIN ORAL Take by mouth. ? ? ? psyllium seed, with dextrose, (FIBER ORAL) Take by mouth. gummies ? ? ? docusate sodium (COLACE ORAL) Take by mouth. ? ? ? calcium carbonate (TUMS ORAL) Take by mouth. ? ? ? Aiiigidg-Ct-Haa-Fe-FA ( VITAMIN) tab Take 1 tablet by mouth. ? ? ? No current facility-administered medications for this visit. ? ? ALLERGIES: Patient has no known allergies. ? PERSONAL HISTORY: SOCIAL HISTORY Social History ? Tobacco Use ? Smoking status: Never Smoker ? Smokeless tobacco: Never Used Vaping Use ? Vaping Use: Never used Substance Use Topics ? Alcohol use: Not Currently ? ? Comment: socially ? Drug use: Never ? FAMILY HISTORY: FAMILY HISTORY FAMILY HISTORY Problem Relation Age of Onset ? No Known Problems Mother ? ? No Known Problems Father ? ? No Known Problems Sister ? ? No Known Problems Sister ? ? Alzheimer's Disease Maternal Grandmother ? ? Diabetes Maternal Grandmother ? ? Lymphoma Maternal Grandfather ? ? Seizures Paternal Grandmother ? ? Heart Attack Paternal Grandmother ? ? Skin Cancer Paternal Grandfather ? ? ? REVIEW OF SYMPTOMS: GENERAL: denies fevers or chills ENDOCRINOLOGY: has not been on steroids Cardiology : denies palpitations or chest pain Respiratory: denies SOB or cough Hematology: denies history of prolonged bleeding or easy bruising or VTE Allergy: Denies history of personal or family history of allergy to anesthesia ? PHYSICAL EXAMINATION: ? VITALS: Blood pressure 126/84, weight 266 lb (120.7 kg), last menstrual period 05/22/2020. ? GENERAL: The patient is well nourished, well hydrated in no acute distress. , The patient is oriented to time, place, and person. NECK: Supple. No lynphadenopathy, normal thyroid, no thyromegaly. LUNGS: Clear to auscultation bilaterally. no wheezes, rhonchi or rales HEART: Regular rate and rhythm, Normal heart sounds and No murmurs or gallops GENITALIA: Normal external genitalia, Urethral meatus normal, Bladder nontender, normal vagina and normal vaginal tone, normal cervix, normal uterus, size and consistency, normal adnexa without masses or tenderness and perineum WNL WET PREP: Not indicated ? IMPRESSION: Estimated Date of Delivery: 02/26/21 Ziggy breech ? PLAN: The risks/benefits/alternatives and personal involved for the planned c- section were reviewed with the patient. Her questions were answered to her satisfaction and she desires to proceed. Consent was signed. I reviewed with her postop instructions and expectations. ? ? I have reviewed and updated past medical and surgical history, medications and allergies This H&P was completed in my office on 02/14/21.
[2021-02-19] VITALS (16 sets, daily range): BP systolic 87–132; BP diastolic 54–84; PULSE 59–95; RESP 14–18; TEMP 35.9–36.7; O2SAT 95–100; BMI 42.1
[2021-02-19] MEDS: Lactated Ringers 1,000 ML 999 ML IV (10:00)
[2021-02-19 10:22] LABS: Absolute Lymphocyte Count 1.99 X10^3/uL (0.83-4.51); Basophil# 0.03 X10^3/uL; Basophil% 0.3 % (0-1); Eosinophil# 0.13 X10^3/uL; Eosinophils% 1.2 % (0-5); Hematocrit 33.4 % (37-47); Hemoglobin 10.5 g/dL (12.0-15.0); Lymphocyte # 1.99 X10^3/ul (0.83-4.51); Lymphocyte % 18.3 % (19-41); Mean Corp Hgb Conc 31.4 g/dL (32-36); Mean Corpuscular Hgb 25.2 pg (27.0-32.0); Mean Corpuscular Volume 80.3 fL (81-99); Mean Platelet Vol. 9.1 fl (6.2-12.0); Monocyte# 0.64 X10^3/uL; Monocyte% 5.9 % (0-10); NRBC Flagged by Analyzer 0 % (0-5); Neutrophil # 8.02 X10^3/uL (2.7-7.7); Neutrophil % 73.6 % (47-70); Platelet Count 412 K/mm3 (150-450); RBC Distribution Width CV 15.9 % (11.6-14.6); RBC Distribution Width SD 45.7 fl (35.1-43.9); Red Blood Count 4.16 M/mm3 (4.2-5.4); White Blood Count 10.9 K/mm3 (4.4-11.0)
[2021-02-19] MEDS: Acetaminophen 500 MG Tablet 1000 MG PO ×3 (11:06→23:43)
[2021-02-19] MEDS: Lactated Ringers 1,000 ML 150 ML IV (11:06)
[2021-02-19] MEDS: Sodium Citrate/Citric Acid 30 ML UDC PO (11:53)
--- NOTE | 2021-02-19 12:14 | OP.PCM_ITS ---
Maternal Data Information Final EDUARDO: 02/26/21 Final EDUARDO Source: US <20 weeks Gestational age: 39 Details Operative Information Date of Procedure: 02/19/21 Pre-Operative Diagnosis: breech, 39 weeks Post-Operative Diagnosis: same Classification: Scheduled Procedure Type: low transverse compliance representative #1: Maria C Ojeda Type of Anesthesia: Spinal Anesthesiologist: Viviana Cerda Special Medications: Duramorph Antibiotic Given: Ancef 2 grams IV x1 Drain: Cotton to straight drain Estimated Blood Loss: 800 Fluids Replaced: 1000 cc crystalloid Procedure Start Time: 12:17 Time of Delivery: 12:20 Findings Description of Procedure: The patient was taken to the operating room. She was prepped and draped in the dorsal supine position with a leftward tilt. A Pfannenstiel skin incision was made approximately 2 cm above the symphysis pubis and carried through to underlying layer fascia with the scalpel. The fascia was incised incised in the midline and extended laterally with the Mcconnell scissors. The fascia was dissected off the rectus muscles with blunt and sharp dissection. The rectus muscles were in the midline and the peritoneum was entered bluntly. The peritoneal incision was stretched and the bladder blade was placed. The uterine incision was made in a low transverse fashion with the scalpel and extended superiorly and inferiorly with blunt dissection. The amniotic membranes were ruptured bluntly and clear amniotic fluid returned. The 's buttocks were brought to the incision. The legs were swept out individually. The arms were then swept out individually. A towel was placed around the trunk of the fetus and the head was delivered in a flexed position through the loose nuchal cord x1. The mouth and nares were bulb suctioned. The cord was clamped and cut as the was stimulated. Cord clamping was delayed. The infant was handed off to the waiting nursing staff. The placenta was delivered with fundal massage and gentle traction in the standard fashion. The uterus was exteriorized and cleared of all clots and debris. The cervix was dilated with a ring forcep. The uterine incision was closed with #1 Vicryl in a running locked fashion. A second layer of the same suture was used in an imbricating fashion. 2 [id number] sutures were needed and left side of the uterine incision in a sinus to obtain hemostasis. The incision was examined and was found to be hemostatic. Some Kirill was placed over the incision. The uterus was placed back into the peritoneal cavity and hemostasis was again confirmed. The rectus muscles were examined and any bleeding was Bovie cauterized. The parietal peritoneum and rectus muscles were closed en bloc with an 0 Vicryl running suture. The surgical teams outer gloves were then changed. Some Kirill was placed over the rectus muscles as well as in the subcutaneous tissue. The rectus fascia was examined and any bleeding was Bovie cauterized and the rectus fascia was closed with 0 PDS suture in a running standard fashion. The subcutaneous tissue was examining and any bleeding was Bovie cauterized. The subcutaneous tissue was reapproximated with 3-0 Vicryl suture. The skin was closed in a subcuticular fashion by the ADVERTISING ACCOUNT MANAGER with me present in the labor and delivery suite. I performed the remainder of the procedure with assistance. All sponge, lap, and needle counts were correct. The patient was taken to her room for recovery in a stable condition. Presentation: Positive for Ziggy Breech Amniotic Membrane Rupture Type: Artificial Amniotic Fluid Description: Clear Placental Delivery Description: Expressed Placenta Disposition: [facility] Cord Vessel Description: 3 Vessels Cord Entanglement: Around neck x 1, loose Nuchal Cord Compression: Without compression A Gender: Male (8 lb 11 oz, [place]) (1 minute): 8 (5 minute): 9 Delayed Cord Clamping: Yes Complications Complications: none Admit VTE Documentation VTE Present on Admission: No VTE Mechan Device Prophylaxis: SCD's VTE Pharm Prophylaxis Ordered: Yes
[2021-02-19] MEDS: Oxytocin 30 units/NS 500 ml 30 UNITS/500 ML IV.SOLN 167 UNITS IV (13:20)
[2021-02-19] MEDS: Ketorolac 30 MG/ML Syringe IV ×2 (14:03→20:37)
[2021-02-19] MEDS: 0.9% Saline Lock 10 ML Syringe IV (17:24)
[2021-02-20] VITALS (7 sets, daily range): BP systolic 113–130; BP diastolic 56–73; PULSE 78–94; RESP 16–18; TEMP 36.3; O2SAT 96–98
[2021-02-20] MEDS: Enoxaparin 40 MG/0.4 ML Syringe SC ×2 (00:30→12:23)
[2021-02-20] MEDS: Ketorolac 30 MG/ML Syringe IV ×2 (02:27→08:57)
[2021-02-20] MEDS: Acetaminophen 500 MG Tablet 1000 MG PO ×3 (04:53→18:39)
[2021-02-20 06:32] LABS: Hematocrit 30.5 % (37-47); Hemoglobin 9.6 g/dL (12.0-15.0); Mean Corp Hgb Conc 31.5 g/dL (32-36); Mean Corpuscular Hgb 25.9 pg (27.0-32.0); Mean Corpuscular Volume 82.2 fL (81-99); Mean Platelet Vol. 9.1 fl (6.2-12.0); Platelet Count 365 K/mm3 (150-450); RBC Distribution Width CV 15.9 % (11.6-14.6); RBC Distribution Width SD 47.1 fl (35.1-43.9); Red Blood Count 3.71 M/mm3 (4.2-5.4)
--- NOTE | 2021-02-20 07:30 | PCM.PN.OB ---
Subjective Subjective Pain well controlled, average lochia. No N/V. Able to urinate Objective Data Objective Data Vital Signs: Vital Signs Temp Pulse Resp BP Pulse Ox 97.2 F L 78 18 115/68 95 02/19/21 23:35 02/20/21 04:42 02/20/21 04:42 02/20/21 04:42 02/19/21 23:35 Oxygen Delivery Method Room Air Weight: 118.4 kg Body Mass Index (BMI) 42.1 Intake & Output: Intake and Output for Last 24 Hours 02/18/21 02/19/21 02/20/21 23:59 23:59 23:59 Intake Total 2140 / 2140 Output Total 1500 / 1500 100 / 100 Balance 640 / 640 -100 / -100 Lab / Micro Data Result Diagrams: 02/20/21 06:15 Labs: Laboratory Results - last 24 hr 02/19/21 10:00: WBC 10.9, RBC 4.16 L, Hgb 10.5 L, Hct 33.4 L, MCV 80.3 L, MCH 25.2 L, MCHC 31.4 L, RDW Std Deviation 45.7 H, RDW Coeff of Laura 15.9 H, Plt Count 412, MPV 9.1, Immature Gran % (Auto) 0.700, Neut % (Auto) 73.6 H, Lymph % (Auto) 18.3 L, [place] % (Auto) 5.9, Eos % (Auto) 1.2, Baso % (Auto) 0.3, Absolute Neuts (auto) 8.0 H, Absolute Lymphs (auto) 1.99, Nucleated RBC % 0 02/19/21 10:00: Blood Type O POSITIVE, Antibody Screen NEGATIVE 02/20/21 06:15: WBC 15.0 H, RBC 3.71 L, Hgb 9.6 L, Hct 30.5 L, MCV 82.2, MCH 25.9 L, MCHC 31.5 L, RDW Std Deviation 47.1 H, RDW Coeff of Laura 15.9 H, Plt Count 365, MPV 9.1 Micro: Microbiology 02/19/21 10:00 Nasal Secretion SARS-CoV-2 Antigen (Rapid) - Final Physical Exam Const alert General Appearance: cooperative GI GI Narrative: soft, moderate distention, fundus firm, appropriately tender. Abdominal bandage clean dry and intact Assessment & Plan (1) delivery delivered: PLAN: POD#1 s/p primary c/s doing well mild chronic antepartum anemia- blood count stable/appropriate after surgery and doing well ambulate
[2021-02-20] MEDS: Senna/Docusate Sodium 1 Tablet PO (09:19)
[2021-02-20] MEDS: Naproxen 500 MG Tablet PO ×2 (15:46→23:18)
[2021-02-20] MEDS: oxyCODONE 5 MG Tablet PO ×2 (17:14→22:16)
[2021-02-21] MEDS: Acetaminophen 500 MG Tablet 1000 MG PO ×2 (00:21→06:13)
[2021-02-21] MEDS: Enoxaparin 40 MG/0.4 ML Syringe SC (00:22)
[2021-02-21 04:00] VITALS: BP 109/65; PULSE 86; RESP 16; TEMP 36.1; O2SAT 96
[2021-02-21] MEDS: Naproxen 500 MG Tablet PO (06:14)
--- NOTE | 2021-02-21 08:29 | PCM.PN.OB ---
Subjective Subjective Doing well per patient and nursing staff. Ambulating and taking PO without difficulty. Voiding and passing flatus. Pain controlled. , services for assistance. Denies headache, visual changes, chest pain, shortness of breath, leg pain or increased bleeding. Lochia normal.Planning D/C home today Objective Data Objective Data Vital Signs: Vital Signs Temp Pulse Resp BP Pulse Ox 97.0 F L 86 16 109/65 96 02/21/21 04:00 02/21/21 04:00 02/21/21 04:00 02/21/21 04:00 02/21/21 04:00 Oxygen Delivery Method Room Air Weight: 261 lb 0.437 oz Body Mass Index (BMI) 42.1 Intake & Output: Intake and Output for Last 24 Hours 02/19/21 02/20/21 02/21/21 23:59 23:59 23:59 Intake Total 2140 / 2140 Output Total 1500 / 1500 850 / 850 Balance 640 / 640 -850 / -850 Lab / Micro Data Result Diagrams: 02/20/21 06:15 Micro: Microbiology 02/19/21 10:00 Nasal Secretion SARS-CoV-2 Antigen (Rapid) - Final ROS Constitutional Constitutional: Reports systems reviewed and no addt'l complaints, except as documented; Denies headache(s) Eyes Eyes: Denies acute decrease in peripheral vision, blurry vision or change in vision ENT HEENT: Reports systems reviewed and no addt'l complaints, except as documented Cardiovascular Cardiovascular: Denies chest pain or dizziness Respiratory/Chest Respiratory/Chest: Denies cough, dyspnea, dyspnea on exertion, shortness of breath at rest or shortness of breath with exertion Gastrointestinal Gastrointestinal: Denies abdominal pain, diarrhea, nausea or vomiting Genitourinary Genitourinary: Denies abdominal discomfort Musculoskeletal Musculoskeletal: Denies limited range of motion Integumentary Integumentary: Reports systems reviewed and no addt'l complaints, except as documented Neurologic Neurologic: Reports systems reviewed and no addt'l complaints, except as documented Psychiatric Psychiatric: Reports systems reviewed and no addt'l complaints, except as documented Endocrine Endocrinology: Reports systems reviewed and no addt'l complaints, except as documented Hematologic/Lymphatic Hematologic/Lymphatic: Reports systems reviewed and no addt'l complaints, except as documented Allergic/Immunologic Allergic/Immunologic: Reports systems reviewed and no addt'l complaints, except as documented Physical Exam Const alert and oriented x3 General Appearance: cooperative Orientation / Consciousness: awake, oriented to person, oriented to place and oriented to time Exam Limitations: no limitations HEENT normocephalic Head and Scalp: normal to inspection, normocephalic and atraumatic Face and Sinus: normal facial exam Eyes General Eye: normal appearance of both eyes Neck full ROM Chest Chest: symmetrical chest wall rise Resp normal respiratory effort and normal air movement Auscultation: clear to auscultation bilaterally Cardio regular rate, regular rhythm, S1 normal heart sound, S2 normal heart sound, no murmurs, no rub, no gallops and no clicks GI normal to inspection, nondistended, normoactive bowel sounds and non-tender GI Narrative: fundus firm 2 below U. Dressing dry and intact appearance of the vagina normal Bladder / Kidney Exam: no CVA tenderness Back/Spine normal ROM Extremity normal to inspection and full ROM Skin no rashes or lesions noted Neuro oriented x3, CN's II-XII intact bilaterally and moves all extremities Sensorium / Orientation: awake, alert and oriented to person Motor Exam: clonus absent Deep Tendon Reflexes: Rt Patellar (L4): 2+ and Lt Patellar (L4): 2+ Assessment & Plan (1) delivery delivered: PLAN: POD#2 Routine postoperative care VSS Pain management F/U 1 week for incision check and 6 week for PP visit.
[2021-02-21 08:30] VITALS: PULSE 85; RESP 16; TEMP 36.3; O2SAT 98
--- NOTE | 2021-02-21 08:32 | PCM.DC.SUM ---
Providers Date of Admission: 02/19/21 Primary Care Physician: Dionne Primary Care Phys Reason For Visit: PRIMARY C SECTION Diagnosis Discharge Diagnosis (1) delivery delivered: Status: Acute Code(s): O82 - Encounter for delivery without indication Medications at Discharge Home Medications prenat.vits,roney,wru-xkoy-wlajz 1 tab PO DAILY 07/25/20 acetaminophen 1,000 mg PO Q6H #0 tab 02/21/21 naproxen 500 mg PO Q8H #0 tab 02/21/21 oxycodone 5 mg PO Q6H PRN PRN 7 Days #10 tab 02/21/21 Hospital Course Summary of Care Provided Hospital Course: Presented on 04/22/20 for LTCS. Uncomplicated hospital course. D/S home Postoperative day #2 Weight / BMI Weight Weight: 261 lb 0.437 oz Body Mass Index (BMI) 42.1 ABG / Lab / Microbiology Data Result Diagrams: 02/20/21 06:15 Microbiology: Microbiology 02/19/21 10:00 Nasal Secretion SARS-CoV-2 Antigen (Rapid) - Final Meaningful Use Info Meaningful Use Diagnoses (Choose all that apply): None applicable Discharge Plan Admission Admit Date/Time: 02/19/21 09:16 Primary Reason for Your Visit: Section Attending Provider: Ameena Marin Primary Care Provider: Care PhysicianDionne Primary Discharge Orders/Prescriptions Prescriptions: New acetaminophen 500 mg Tablet 1,000 mg PO Q6H Qty: 0 RF: 0 naproxen 500 mg Tablet 500 mg PO Q8H Qty: 0 RF: 0 oxycodone 5 mg Tablet 5 mg PO Q6H PRN PRN (Reason: Pain Score 4-10) 7 Days Qty: 10 RF: 0 Continued prenat.vits,roney,efz-uafr-frgad Tablet 1 tab PO DAILY RF: 0 Discontinued docusate sodium [Colace] 100 mg Capsule 100 mg PO BID RF: 0 aspirin 81 mg Capsule 81 mg PO DAILY RF: 0 Referrals / Follow Up: Ameena Marin MD [STAFF PHYSICIAN] - (1 week incision check, 6 week PP visit) Care PhysicianDionne Primary [Primary Care Provider] - Disposition Disposition (needs filled in before D/C Order can be placed): Home, Self Care
[2021-02-21 10:24] VITALS: BP 106/70
== END 2021-02-21 10:33 | disposition home or self-care (01) | DRG 788 ==
PROVIDERS: Admitting Provider Obstetrics & Gynecology; Referring Provider Obstetrics & Gynecology; Visit Provider Obstetrics & Gynecology
PROC: 10D00Z1 Extraction of Products of Conception, Low, Open Approach (ICD-10-PCS; CPT 59514; principal; 2021-02-19 11:45)
DX: O32.1XX0 Maternal care for breech presentation, not applicable or unspecified (principal); O69.1XX0 Labor and delivery complicated by cord around neck, with compression, not applicable or unspecified; D64.9 Anemia, unspecified; O99.02 Anemia complicating childbirth; Z3A.39 39 weeks gestation of pregnancy; Z37.0 Single live birth; Z86.16 Personal history of COVID-19; Z80.7 Family history of other malignant neoplasms of lymphoid, hematopoietic and related tissues; Z80.8 Family history of malignant neoplasm of other organs or systems; Z82.0 Family history of epilepsy and other diseases of the nervous system; Z83.3 Family history of diabetes mellitus; Z82.49 Family history of ischemic heart disease and other diseases of the circulatory system
CPT/HCPCS: 85025; 85027; 86850; 86900; 86901; 87426; 99218; J7120; A4216; G0378; J2405

== ENCOUNTER 2023-10-07 05:08 | Inpatient (IN) | payer BC, SELFPAY ==
--- NOTE | 2023-09-23 10:12 | HP.PCM_ITS ---
History and Physical Date of Admission: 09/23/23 HPI: The patient is a 28 year old female presenting for pre-operative visit. She is scheduled for , for previous c/s and 39 weeks on 11/07/23. Procedure discussed along with risks, benefits and complications. Other alternatives discussed for management. Consent form signed? Yes. PAST MEDICAL HISTORY PAST MEDICAL HISTORY Diagnosis Date ? NEGATIVE MEDICAL HISTORY PAST SURGICAL HISTORY PAST SURGICAL HISTORY Procedure Laterality Date ? DELIVERY ONLY 02/19/2021 LTCS ? PAST SURGICAL HISTORY OF wisdom teeth ? TONSILLECTOMY HX CURRENT MEDICATIONS Current Outpatient Medications Medication Sig Dispense Refill ? ferrous sulfate (IRON ORAL) Take by mouth. ? BABY ASPIRIN ORAL ? [id number]-[id number] ( VITAMIN) tab Take 1 tablet by mouth. No current facility-administered medications for this visit. ALLERGIES: Patient has no known allergies. PERSONAL HISTORY: SOCIAL HISTORY Social History Tobacco Use ? Smoking status: Never ? Smokeless tobacco: Never Vaping Use ? Vaping Use: Never used Substance Use Topics ? Alcohol use: Not Currently Comment: socially ? Drug use: Never FAMILY HISTORY: FAMILY HISTORY FAMILY HISTORY Problem Relation Age of Onset ? No Known Problems Mother ? No Known Problems Father ? No Known Problems Sister ? No Known Problems Sister ? Alzheimer's Disease Maternal Grandmother ? Diabetes Maternal Grandmother ? Lymphoma Maternal Grandfather ? Seizures Paternal Grandmother ? Heart Attack Paternal Grandmother ? Skin Cancer Paternal Grandfather REVIEW OF SYMPTOMS: GENERAL: denies fevers or chills ENDOCRINOLOGY: has not been on steroids Cardiology : denies palpitations or chest pain Respiratory: denies SOB or cough Hematology: denies history of prolonged bleeding or easy bruising or VTE Allergy: Denies history of personal or family history of allergy to anesthesia PHYSICAL EXAMINATION: VITALS: Last menstrual period 01/06/2023. GENERAL: The patient is well nourished, well hydrated in no acute distress. , The patient is oriented to time, place, and person. NECK: Supple. No lynphadenopathy, normal thyroid, no thyromegaly. LUNGS: Clear to auscultation bilaterally. no wheezes, rhonchi or rales HEART: Regular rate and rhythm, Normal heart sounds, and No murmurs or gallops abd- soft, nontender, gravid IMPRESSION: Estimated Date of Delivery: 10/13/23 w/ h/o previous c/s PLAN: The risks/benefits/alternatives and personal involved for the planned c- section were reviewed with the patient. Her questions were answered to her satisfaction and she desires to proceed. Consent was signed. I reviewed with her postop instructions and expectations. I have reviewed and updated past medical and surgical history, medications and allergies Assessment & Plan Assessment/Plan (1) 39 weeks gestation of : (2) Previous delivery affecting : (3) Obesity affecting : QUALIFIERS: Trimester: third trimester Qualified Code(s): O99.213 - Obesity complicating , third trimester
[2023-10-07] VITALS (18 sets, daily range): BP systolic 112–136; BP diastolic 60–89; PULSE 56–99; RESP 15–18; TEMP 36.2–36.7; O2SAT 97–100; BMI 44.7
[2023-10-07] MEDS: Lactated Ringers 1,000 ML 999 ML IV (05:30)
[2023-10-07 05:43] LABS: Absolute Lymphocyte Count 2.37 X10^3/uL (0.83-4.51); Absolute Neutrophil Count 6.7 X10^3/uL (2.0-7.7); Basophil# 0.03 X10^3/uL; Basophil% 0.3 % (0-1); Eosinophil# 0.14 X10^3/uL; Eosinophils% 1.4 % (0-5); Hematocrit 36.5 % (37-47); Hemoglobin 11.3 g/dL (12.0-15.0); Lymphocyte # 2.37 X10^3/ul (0.83-4.51); Lymphocyte % 23.9 % (19-41); Mean Corpuscular Hgb 26.4 pg (27.0-32.0); Mean Corpuscular Volume 85.3 fL (81-99); Mean Platelet Vol. 9.3 fl (6.2-12.0); Monocyte# 0.56 X10^3/uL; Monocyte% 5.7 % (0-10); NRBC Flagged by Analyzer 0 % (0-5); Neutrophil # 6.73 X10^3/uL (2.7-7.7); Platelet Count 341 K/mm3 (150-450); RBC Distribution Width CV 16.6 % (11.6-14.6); Red Blood Count 4.28 M/mm3 (4.2-5.4); White Blood Count 9.9 K/mm3 (4.4-11.0)
[2023-10-07] MEDS: Acetaminophen 500 MG Tablet 1000 MG PO ×3 (05:46→17:57)
[2023-10-07] MEDS: Lactated Ringers 1,000 ML 150 ML IV (06:31)
[2023-10-07] MEDS: Sodium Citrate/Citric Acid 30 ML UDC PO (07:11)
[2023-10-07] MEDS: Cefazolin 3 GM in 0.9% Normal Saline (100mL Bag) 100 ML IV (07:21)
--- NOTE | 2023-10-07 07:44 | OP.PCM_ITS ---
Assessment & Plan (1) Previous delivery affecting : (2) 39 weeks gestation of : (3) Single live : Maternal Data Information Final EDUARDO: 10/13/23 Gestational age: 39 1/7 Details Operative Information Date of Procedure: 10/07/23 Pre-Operative Diagnosis: previous c/s Post-Operative Diagnosis: same Indications for : Repeat Elective Classification: Scheduled Procedure Type: low transverse information systems auditor #1: Matt Phillip Type of Anesthesia: Spinal Anesthesiologist: Luan Scott Special Medications: duramorph Antibiotic Given: Ancef 3 grams IV x1 Drain: Cotton to straight drain Estimated Blood Loss: 800 Fluids Replaced: 1200 Procedure Start Time: 07:48 Procedure Stop Time: 08:31 Time of Delivery: 07:52 Findings Description of Procedure: The patient was taken to the operating room. She was prepped and draped in the dorsal supine position with a leftward tilt. A Pfannenstiel skin incision was made approximately 2 cm above the symphysis pubis and carried through to underlying layer fascia with the scalpel. The fascia was incised incised in the midline and extended laterally with the Mcconnell scissors. The fascia was dissected off the rectus muscles with blunt and sharp dissection. The rectus muscles were in the midline and the peritoneum was entered bluntly. The peritoneal incision was stretched the Lopez O retractor was placed. The uterine incision was made in a low transverse fashion with the scalpel and extended superiorly and inferiorly with blunt dissection. The amniotic membranes were ruptured bluntly and clear amniotic fluid returned. The infant's head was brought to the incision in the flexed position and delivered without difficulty. The remainder of the was delivered with gentle traction and fundal pressure in the standard fashion. The mouth and nares were bulb suctioned. The cord was clamped and cut as the was stimulated. Cord clamping was delayed. The infant was handed off to the waiting nursing staff. The placenta was delivered with fundal massage and gentle traction in the standard fashion. The uterus is left in the abdominal cavity and cleared of all clots and debris. The cervix was dilated with a ring forcep. The uterine incision was closed with #1 Vicryl in a running locked fashion. A second layer of the same suture was used in an imbricating fashion to obtain hemostasis. The incision was examined and was found to be hemostatic. Some Heema blast was placed over the uterine incision for some oozing and pressure was held for 2 minutes hemostasis was noted.. The rectus muscles were examined and any bleeding was Bovie cauterized. The parietal peritoneum and rectus muscles were closed en bloc with an 0 Vicryl running suture. Heema blast was placed over every layer. Bovie cauterization was also used to obtain hemostasis. The rectus fascia was examined and any bleeding was Bovie c auterized and the rectus fascia was closed with #1 PDS suture in a running standard fashion. The subcutaneous tissue was examining and any bleeding was Bovie cauterized. The subcutaneous tissue was reapproximated with 3-0 Vicryl suture. The skin was closed in a subcuticular fashion by the COIL MACHINE SUPERVISOR with me present in the labor and delivery suite. I performed the remainder of the procedure with assistance. All sponge, lap, and needle counts were correct. The patient was taken to her room for recovery in a stable condition. Presentation: Positive for Vertex Amniotic Membrane Rupture Type: Artificial Amniotic Fluid Description: Clear Placental Delivery Description: Expressed Placenta Disposition: [facility] Specimen(s) Sent to Pathology: non Cord Vessel Description: 3 Vessels Cord Entanglement: None Infant A Gender: Female (Brittney) (1 minute): 9 (5 minute): 9 Delayed Cord Clamping: Yes Complications Complications: none Admit VTE Documentation VTE Present on Admission: No VTE Mechan Device Prophylaxis: SCD's VTE Pharm Prophylaxis Ordered: Yes
[2023-10-07 08:06] LABS: Syphilis Antibodies Non-reactive
[2023-10-07] MEDS: Oxytocin 15 Units/NS 250ml 15 UNITS/250 ML IV.SOLN 83 UNITS IV (09:00)
[2023-10-07] MEDS: Ketorolac 30 MG/ML Syringe IV ×3 (09:30→21:50)
[2023-10-07] MEDS: Lactated Ringers 1,000 ML 100 ML IV (12:00)
[2023-10-07] MEDS: Enoxaparin 40 MG/0.4 ML Syringe SC (19:53)
[2023-10-07] MEDS: 0.9% Saline Lock 10 ML Syringe IV (21:50)
[2023-10-08] MEDS: Acetaminophen 500 MG Tablet 1000 MG PO ×2 (00:28→06:51)
[2023-10-08 00:55] VITALS: BP 111/68; PULSE 76; RESP 16; TEMP 36.2; O2SAT 99
[2023-10-08 02:02] VITALS: PULSE 62; RESP 16; O2SAT 98
[2023-10-08 04:00] VITALS: BP 130/75; PULSE 79; RESP 16; TEMP 36.2; O2SAT 99
[2023-10-08] MEDS: Ketorolac 30 MG/ML Syringe IV (04:04)
[2023-10-08] MEDS: 0.9% Saline Lock 10 ML Syringe IV (04:05)
[2023-10-08 06:45] VITALS: PULSE 67; RESP 16; O2SAT 100
[2023-10-08] MEDS: Enoxaparin 40 MG/0.4 ML Syringe SC (07:53)
[2023-10-08 07:55] VITALS: BP 129/87; PULSE 88; RESP 17; TEMP 36.6; O2SAT 98
--- NOTE | 2023-10-08 08:33 | PCM.PN.OB ---
Subjective Subjective Doing well. Pain controlled. Lochia light. Ambulating and voiding without difficulty Objective Data Objective Data Vital Signs: Vital Signs Temp Pulse Resp BP Pulse Ox O2 Del Method 98 F 88 17 129/87 H 98 Room Air 10/08/23 07:55 10/08/23 07:55 10/08/23 07:55 10/08/23 07:55 10/08/23 07:55 10/08/23 07:55 Oxygen Delivery Method Room Air Weight: 122 kg Body Mass Index (BMI) 44.7 Intake & Output: Intake and Output for Last 24 Hours 10/06/23 10/07/23 10/08/23 23:59 23:59 23:59 Intake Total 1979 / 1979 Output Total 1600 / 1600 500 / 500 Balance 380 / 380 -500 / -500 Lab / Micro Data 10/07/23 05:30 ROS Constitutional Constitutional: Denies fatigue, fever(s) or malaise Eyes Eyes: Denies change in vision ENT HEENT: Denies dizziness or headache(s) Cardiovascular Cardiovascular: Denies chest pain, dyspnea or lightheadedness Respiratory/Chest Respiratory/Chest: Denies cough or dyspnea Gastrointestinal Gastrointestinal: Denies change in bowel habits Genitourinary Genitourinary: Denies burning urination or genital lesions Integumentary Integumentary: Denies rash Neurologic Neurologic: Denies confusion, dizziness, headache(s), numbness or weakness Physical Exam Const alert General Appearance: cooperative GI GI Narrative: soft, moderate distention, fundus firm, appropriately tender. Abdominal bandage clean dry and intact Assessment & Plan (1) Previous delivery affecting : (2) S/P : PLAN: Plan Discharge home
--- NOTE | 2023-10-08 08:34 | PCM.DC.SUM ---
Providers Date of Admission: 10/07/23 Date of Discharge: 10/08/23 Primary Care Physician: No Primary Care Phys Reason For Visit: C SECTION Diagnosis Discharge Diagnosis (1) Previous delivery affecting : Status: Acute Code(s): O34.219 - Maternal care for unspecified type scar from previous delivery (2) S/P : Status: Acute Code(s): Z98.891 - History of uterine scar from previous surgery Plan Discharge home Medications at Discharge Home Medications prenat.vits,roney,qgp-hyxt-[id number] 1 tab PO DAILY supplement 07/25/20 ferrous sulfate 325 mg (65 mg iron) tablet (Iron (ferrous sulfate)) 325 mg PO DAILY supplement 10/07/23 oxycodone 5 mg tablet 5 mg PO Q6H PRN PRN Pain Score 4-10 7 days #7 tabs 10/08/23 Hospital Course Operations section Procedures None Summary of Care Provided Minutes Spent on Discharge: 21 Hospital Course: Scheduled repeat . Delivered without complication. No problems Physical Exam Const alert General Appearance: cooperative GI GI Narrative: soft, moderate distention, fundus firm, appropriately tender. Abdominal bandage clean dry and intact Weight / BMI Weight Weight: 122 kg Body Mass Index (BMI) 44.7 ABG / Lab / Microbiology Data 10/07/23 05:30 D/C Instructions Discharge Diet: No restrictions May resume sexual activity in: 4-6 weeks Lifting Restrictions: 20 pounds Additional Activity Instructions: Nothing in the vagina for 4-6 weeks. You may return to work/school in 6 weeks. Call your doctor if your incision/area has: Continuous Slow Oozing, Sudden Increased Bleeding, Increased Pain/ Swelling, Increased Redness and Foul Smelling Discharge Call your doctor if you observe: Fever of 101 or Higher and Using more than 1 pad per hour (for 2 hours) Suture Line Care: Avoid Pulling/Pushing and Avoid Pinching/Bending Cleanse incision/area with: Keep Dressing Clean & Dry Please Follow Up With: Ameena Marin MD When: Call to make an appointment for an incision check in 1-2 [phone]. You will need a post check in 6 weeks. Meaningful Use Info Meaningful Use Meaningful Use Diagnoses (Choose all that apply): None applicable Ischemic Stroke Statin Dosing Therapy Reference: STATIN DOSE THERAPY REFERENCE: * Patients > 75 years receive moderate or high dose statin therapy. * Patients 75 years or YOUNGER should receive HIGH intensity statin dose unless contraindicated. You will be required to document reason for non-treatment if statin daily dose does not meet guidelines. HIGH DOSE STATIN THERAPY DAILY Atorvastatin > than or = to 40 mg Rosuvastatin > than or = to 20 mg Amlodipine + Atorvastatin > than or = to 2.5/40 mg Ezetimibe + Simvastatin 10/80 mg Simvastatin 80mg Discharge Plan Admission Admit Date/Time: 10/07/23 05:08 Primary Reason for Your Visit: repeat Attending Provider: Ameena Marin Primary Care Provider: Care Physician,Dionne Primary Discharge Orders/Prescriptions Prescriptions: New oxycodone 5 mg Tablet 5 mg PO Q6H PRN PRN (Reason: Pain Score 4-10) 7 Days Qty: 7 0RF Continued prenat.vits,roney,[id number]-bziqy Tablet 1 tab PO DAILY ferrous sulfate [Iron (ferrous sulfate)] 325 mg (65 mg iron) tablet 325 mg PO DAILY Discontinued aspirin [Adult Aspirin Regimen] 81 mg tablet,delayed release (DR/EC) 162 mg PO DAILY Referrals / Follow Up: Care Physician,No Primary [Primary Care Provider] - Disposition Disposition (needs filled in before D/C Order can be placed): Home, Self Care
[2023-10-08] MEDS: Ibuprofen 600 MG Tablet PO (09:59)
[2023-10-08] MEDS: Senna/Docusate Sodium 1 Tablet PO (09:59)
== END 2023-10-08 10:35 | disposition home or self-care (01) | DRG 788 ==
PROVIDERS: Admitting Provider Obstetrics & Gynecology; Visit Provider Obstetrics & Gynecology
PROC: 10D00Z1 Extraction of Products of Conception, Low, Open Approach (ICD-10-PCS; CPT 59514; principal; 2023-10-07 07:00)
DX: O34.211 Maternal care for low transverse scar from previous cesarean delivery (principal); O99.214 Obesity complicating childbirth; Z37.0 Single live birth; Z3A.39 39 weeks gestation of pregnancy
CPT/HCPCS: 59050; 85025; 86780; 86850; 86900; 86901; 99221; J7120; A4216; G0378